=== PATIENT | male | born 1990 | race Caucasian/White ===

== ENCOUNTER 2017-04-27 12:22 | Emergency (ER) | payer SELFPAY ==
[2017-04-27 15:51] VITALS: BP 144/80
--- NOTE | 2017-04-27 16:34 | UC ---
Eugene Luna Benjamin, scribed for Rinku Andrews MD on 04/27/17 at 1524 . Hand/Wrist HPI - HPI Summary HPI Summary: 27yo male c/o left hand and fingers swelling and pain since yesterday morning. Pt reports having sharp shooting pain down his left arm. Pt also reports numbness on the tips of the left 2nd and 3rd fingers. Pt also has some discoloration on his left fingers. 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 No pain anywhere else, denies any pain in legs. - History Of Current Complaint Chief Complaint: UCUpperExtremity Stated Complaint: HAND TINGLING Hx Obtained From: Patient Onset/Duration: Sudden Onset, Lasting Days, Still Present Severity Initially: Mild Severity Currently: Mild Pain Intensity: 3 Pain Scale Used: 0-10 Numeric Character Of Pain: Sharp Alleviating: Nothing Associated Signs And Symptoms: Positive: Swelling, Numbness/Tingling - Allergies/Home Medications Allergies/Adverse Reactions: Allergies Allergy/AdvReac Type Severity Reaction Status Date / Time No Known Allergies Allergy Verified 06/29/13 18:32 PMH/Surg Hx/FS Hx/Imm Hx Previously Healthy: No Neurological History: Other Other Neurological History: radial nerve palsy on the left arm - Surgical History Surgical History: None - Family History Known Family History: Positive: None Negative: Diabetes Family History: no cardiovascular issues in family lineage - Social History Occupation: Employed Full-time Lives: With Family Alcohol Use: Occasionally Substance Use Type: None Substance Use Comment - 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 Smoking Status (MU): Heavy Every Day Tobacco Smoker Type: Cigarettes Review of Systems Constitutional: Negative Skin: Negative Eyes: Negative ENT: Negative Respiratory: Negative Cardiovascular: Negative Gastrointestinal: Negative Genitourinary: Negative Motor: Negative Neurovascular: Negative Musculoskeletal: Other: - left fingers and arm pain Neurological: Numbness - on left fingers Psychological: Negative All Other Systems Reviewed And Are Negative: Yes Physical Exam Triage Information Reviewed: Yes Appearance: Well-Appearing, Well-Nourished, Pain Distress - mild Vital Signs: Initial Vital Signs Temp 99.0 F 04/27/17 13:09 Pulse 118 04/27/17 13:09 Resp 18 04/27/17 13:09 BP 118/81 04/27/17 13:09 Pulse Ox 100 04/27/17 13:09 Vital Signs Reviewed: Yes Eyes: Positive: Conjunctiva Clear ENT: Positive: Normal ENT inspection Neck: Positive: Supple, Nontender Respiratory: Positive: Chest non-tender, Lungs clear, Normal breath sounds Cardiovascular: Positive: RRR, No Murmur, Other: - radial pulse present Musculoskeletal: Positive: Strength Intact, ROM Intact, Other: - Tender in the left forearm. Not tender to palpation on the left upper arm, left arm is in full ROM. Neurological: Positive: Alert, Muscle Tone Normal Psychological: Positive: Age Appropriate Behavior Skin: Positive: Other - modeling in the distal aspect of the left fingers, left hand, and the left palm.. Negative: rashes Hand/Wrist Course/Dx - Course Course Of Treatment: Reviewed medications list. Advised pt that appropriate ultrasound study to evaluate his condition is unable to be done here at the urgent care. DISCUSSED DIFFERENT POSSIBILITIES OF ISCHEMIC HAND WITH PATIENT AND THE NEED FOR IMMEDIATE EVALUATION AND CARE AT A HOSPITAL WITH VASCULAR SURGERY AVAILABILITY. HE DECLINED TRANSPORT BY AMBULANCE. HE WILL GET A RIDE FROM FAMILY. I TOLD HIM HE COULD LOOSE HIS HAND IF HE DID NOT GET IMMEDIATE CARE. PATIENT STATED HE WOULD GO TO [facility] OR [facility]. HE ASKED FOR AN OUT OF WORK NOTE WHICH I GAVE HIM. LEFT AMA. - Differential Dx/Diagnosis Provider Diagnoses: LEFT HAND ISCHEMIA - Physician Notifications Discussed Patient Care With: Micah Tinoco - 1525. Discharge - Discharge Plan Condition: Guarded Disposition: AGAINST MEDICAL ADVICE Forms: *Work Release Referrals: No Primary Care Phys,NOPCP [Primary Care Provider] - The documentation as recorded by the Eugene browne Benjamin accurately reflects the service I personally performed and the decisions made by me, Rinku Andrews MD.
== END 2017-04-27 15:45 | disposition left against medical advice (07) ==
LOC: UCEAST 12:22
DX: I99.8 Other disorder of circulatory system (principal); F17.210 Nicotine dependence, cigarettes, uncomplicated
CPT/HCPCS: 99212; G0463

== ENCOUNTER 2017-06-16 16:07 | Emergency (ER) | payer SELFPAY ==
[2017-06-16 16:59] VITALS: BP 128/56
== END 2017-06-16 18:13 | disposition left against medical advice (07) ==
LOC: ED 16:07
DX: L02.414 Cutaneous abscess of left upper limb (principal); Z53.21 Procedure and treatment not carried out due to patient leaving prior to being seen by health care provider
CPT/HCPCS: 99282

== ENCOUNTER 2017-06-17 11:36 | Inpatient (IN) | payer SELFPAY ==
[2017-06-17] MEDS ORDERED: Vancomycin(*) 1,250 MG in NS 0.9% 250 ML* 250 ML IVPB ONE (13:23)
--- NOTE | 2017-06-17 13:27 | ED ---
Upper Extremity Pain - HPI Summary HPI Summary: Pt here w/ Lt arm pain x 4 days. Reports he's an IVDA and "missed" (the vein?) Redness, pain, swelling. Stiffness of elbow joint since yesterday - hurts bicep area and forearm to move elbow. Fever/chills yesterday. Denies numbness, tingling, weakness. Pain is worse w/ moving fingers as well. Appears fatigued. Denies chest pain, SOB, nausea, vomiting. Requesting I "just cut it open and let me get out of here". He tried to keith it himself with a razor blade yesterday w/o success of purulent drainage. Tetanus is UTD. 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 - Allergies/Home Medications Allergies/Adverse Reactions: Allergies Allergy/AdvReac Type Severity Reaction Status Date / Time No Known Allergies Allergy Verified 06/17/17 11:41 PMH/Surg Hx/FS Hx/Imm Hx Previously Healthy: Yes Endocrine/Hematology History: Denies: Hx Anticoagulant Therapy, Hx Blood Disorders, Hx Diabetes, Hx Thyroid Disease, Autoimmune Disease Cardiovascular History: Denies: Hx Hypertension Respiratory History: Denies: Hx Asthma, Hx Chronic Obstructive Pulmonary Disease (COPD) GI History: Denies: Hx Ulcer Psychiatric History: Reports: Hx Substance Abuse Denies: Hx Eating Disorder, Hx of Violent Episodes Against Others Infectious Disease History: No Infectious Disease History: Reports: Hx Hepatitis Denies: Hx Clostridium Difficile, Hx Human Immunodeficiency Virus (HIV), Hx of Known/Suspected MRSA, Hx Shingles, Hx Tuberculosis, Traveled Outside the [place] in Last 30 Days - Family History Known Family History: Positive: None Negative: Diabetes Family History: no cardiovascular issues in family lineage - Social History Lives: With Family Alcohol Use: Occasionally Hx Substance Use: Yes 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, Marijuana, Sedatives Substance Use Comment - Amount & Last Used: opiods Hx Tobacco Use: Yes Smoking Status (MU): Current Every Day Smoker Type: Cigarettes Review of Systems Constitutional: Other - see HPI Cardiovascular: Negative Respiratory: Negative Gastrointestinal: Negative Musculoskeletal: Other - see HPI Skin: Other - see HPI Neurological: Negative Psychological: Normal All Other Systems Reviewed And Are Negative: Yes Physical Exam Triage Information Reviewed: Yes Vital Signs On Initial Exam: Initial Vitals Temp Pulse Resp BP Pulse Ox 98.8 F 122 16 116/79 98 06/17/17 11:41 06/17/17 11:41 06/17/17 11:41 06/17/17 11:41 06/17/17 11:41 Vital Signs Reviewed: Yes Appearance: Positive: Ill-Appearing - appears fatigued, generalized pallor, Pain Distress, Thin Skin: Positive: Warm - Lt UE: erythematous, firm, indurated, feverish Lt distal bicep and proximal forearm - overlying linear scabbed wound - no drainage, no fluctuance; pain in proximal forearm w/ passive movement of phalanges and wrist , Dry Head/Face: Positive: Normal Head/Face Inspection ENT: Positive: Hearing grossly normal Respiratory/Lung Sounds: Positive: Breath Sounds Present Cardiovascular: Positive: Pulses are Symmetrical in both Upper and Lower Extremities Abdomen Description: Positive: Guarding Bowel Sounds: Positive: Present Musculoskeletal: Positive: Limited @ - Lt elbow with limited ROM outside of 90 degrees flexion - painful w/ movement - see above for details Neurological: Positive: Sensory/Motor Intact, Alert, Oriented to Person Place, Time, CN Intact II-III Psychiatric: Positive: Other - agitated during conversation but sleeping when not in conversation Diagnostics - Vital Signs Vital Signs Temp Pulse Resp BP Pulse Ox 06/17/17 12:08 98.8 F 122 16 116/79 98 06/17/17 11:41 98.8 F 122 16 116/79 98 - Laboratory Result Diagrams: 06/17/17 13:25 06/17/17 13:25 Lab Statement: Any lab studies that have been ordered have been reviewed, and results considered in the medical decision making process. Re-Evaluation - Re-Evaluation First Eval Change: Improved Course/Dx - Course Course Of Treatment: Pt here w/ Lt arm pain, stiffness and s/sx of infection. Labs are supportive of infection as well. Septic therapy initiated however pulse was initially recorded inappropriately (HR 60'0, not 120's). Discussed w/ Dr. Briones who is requesting ortho consult. Dr. Friend requesting MRI and admit to medicine - will follow MRI results and clean out CHAD infection as needed. Spoke w/ Dr. Stallone who agrees to admission. Pt agrees to admission. Pt stable at time of transition. Dr. Briones - Diagnoses Differential Diagnosis/HQI/PQRI: Positive: Septic Arthritis, Other - tenosynovitis, cellulitis Provider Diagnoses: Pain in left arm - Physician Notifications Discussed Care of Patient With: Will Briones Discharge - Discharge Plan Condition: Stable Disposition: ADMITTED TO [facility] Referrals: No Primary Care Phys,NOPCP [Primary Care Provider] -
[2017-06-17 13:46] LABS: Hematocrit 39 % (42-52); Hemoglobin 12.9 g/dl (14.0-18.0); Mean Corpuscular HGB Conc 33 g/dl (31-36); Mean Corpuscular Hemoglobin 26 pg (27-31); Mean Corpuscular Volume 78 fL (80-94); Mean Platelet Volume 8 um3 (7.4-10.4); Red Blood Count 4.96 10^6/ul (4.0-5.4); Red Cell Distribution Width 15 % (10.5-15); White Blood Count 12.9 10^3/ul (3.5-10.8)
[2017-06-17 13:59] LABS: Albumin 4.2 g/dL (3.2-5.2); BUN/Creatinine Ratio 15.6 (8-20); C Reactive Protein 198.45 mg/L (< 5.00); Calcium 9.4 mg/dL (8.6-10.3); EGFR African American 129.2 (>60); EGFR Non-African American 100.5 (>60); Globulin 4.4 g/dL (2-4); Potassium 3.9 mmol/L (3.5-5.0); Total Protein 8.6 g/dL (6.4-8.9)
[2017-06-17] MEDS: NS 0.9% 1000 ML*IV.FLUID IV ONE (14:22)
[2017-06-17] MEDS ORDERED: Ketorolac INJ* 60 MG/2 ML VIAL IV PUSH ONE (15:22)
[2017-06-17] MEDS ORDERED: Ketorolac INJ* 30 MG/ML 1 ML VIAL ONE (15:56)
[2017-06-17] MEDS ORDERED: Ketorolac INJ* 30 MG/ML 1 ML VIAL IV PUSH ONE (15:57)
[2017-06-17] MEDS ORDERED: Acetaminophen TAB* 325 MG PO PRN (17:22)
--- NOTE | 2017-06-17 18:19 | RAD ---
Indication: Left arm swelling. Image sequences: Sagittal T1, STIR, coronal T1, STIR, axial T1 and STIR images of the upper arm and elbow were obtained. There is extensive subcutaneous edema noted. In the musculature just lateral to the biceps muscle presumably within the subcutaneous tissue is a fluid collection measuring 2.9 x 2.0 x 1.5 cm. This is consistent with an abscess. Additional fluid collection measuring approximately 2.4 x 1.1 cm is just lateral to the biceps tendon. Additionally there is increased edema in the biceps brachii muscle as well as in the brachialis muscle consistent with myositis. Additionally there is muscular edema in the extensor carpi radialis muscle. This is also consistent with myositis. IMPRESSION: Extensive subcutaneous edema is noted. Drainable fluid collection lateral to the biceps muscle proximal to the elbow crease. Additionally there is drainable fluid collection measuring 2.4 x 1.0 cm just lateral to the biceps brachialis tendon at the elbow. Extensive muscular edema in the biceps, brachialis and brachioradialis muscles.
[2017-06-17] MEDS ORDERED: KETAMINE HCL* 50 MG/ML 10 ML VIAL ONE (19:21)
[2017-06-17] MEDS ORDERED: Lidocaine 2% PF * 5 ML VIAL ONE (19:21)
[2017-06-17] MEDS ORDERED: Propofol* 10 MG/ML 20 ML BTL IV PUSH ONE (19:21)
[2017-06-17] MEDS ORDERED: Midazolam* 1 MG/ML 5 ML VIAL (5 MG) ONE (19:21)
[2017-06-17] MEDS ORDERED: fentaNYL* 50 MCG/ML 5 ML VIAL (250 MCG VIAL) ONE (19:21)
[2017-06-17] MEDS ORDERED: Ondansetron INJ* 2 MG/ML VIAL ONE (19:21)
--- NOTE | 2017-06-17 19:35 | CONS ---
CONSULTATION REPORT: DATE OF CONSULT: 06/17/17 CHIEF COMPLAINT: Left upper extremity infection versus compartment syndrome versus fascitis. HISTORY: The patient is a 27-year-old man, who does not work, who is currently applying for disabilities because he has Buerger's disease, with hepatitis C, who is is an IV drug user, using opiates, who presented to the emergency department today with a painful left upper extremity. The patient states that he injected IV opiates about the anterior aspect of the distal left upper arm 4 days ago on 06/13/17. The following day, June 14, the patient noted some induration and tenderness to palpation about the injection site. This induration and tenderness worsened and he developed more pain over the next several days. He developed some skin erythema as well. The patient attempted to treat himself by an attempt at keith with a razor blade , yesterday, June 16, of the area of the induration about the anterior aspect of the left upper arm. This did not relieve his symptoms. The patient denies fevers at home, but says that he may have had some chills occasionally at home. The patient last used IV drugs this morning, June 17. He has noted some stiffness about the elbow joint since yesterday. PAST MEDICAL HISTORY: Buerger's disease, hepatitis C. PAST SURGICAL HISTORY: Excision of abscess, left forearm, neck. MEDICATIONS: None. ALLERGIES: No known drug allergies. REVIEW OF SYSTEMS: The patient describes chills, but no fevers or sweats at home. No chest pain, shortness of breath, nausea, or vomiting. No heart palpitations. No other joint pain. No current numbness and tingling left upper extremity, although the patient will occasionally get that from his Buerger's disease. PHYSICAL EXAMINATION: Temperature 99.3 degrees Fahrenheit, pulse 66, respiratory rate 16, oxygen saturation 97% on room air, blood pressure 115/64. These vitals were taken at 2:03 p.m. The patient had 2 temperatures obtained at 11:41 a.m. and 12:08 p.m. earlier today that were both 98.8 degrees Fahrenheit, in the emergency department. No acute distress. The patient seems slightly uncomfortable. Alert and oriented. The patient's mood and affect seem appropriate and he is respectful. The patient's dress and hygiene are poor. He seems generally unbathed and his clothes are a little bit dirty. Gait was not assessed as he is sitting on a stretcher in a ER bay. Well coordinated, bilateral lower and right upper extremity. Left upper extremity exam demonstrates some erythema about the anterior aspect of the distal left upper arm extending distal to the elbow joint. This erythema extends medial and lateral as well. There is some soft tissue swelling and induration about the distal left upper arm anteriorly. There is a small break in the skin, approximately 1 cm long about the anterior left upper arm distally where the patient lanced his skin yesterday. There is no drainage from that skin defect. No left axillary lymphadenopathy. No clear erythematous streaking. The patient does have some tenderness to palpation about the left anterior distal upper arm. The patient's passive range of motion of the left elbow is 30 to 95 degrees of flexion. He has some discomfort at terminal ranges of motion and describes that discomfort as being about the distal anterior upper arm. Within that range of 30 to 95 degrees of flexion at times he had no discomfort and at times he had some discomfort, but I would not describe it as extreme discomfort. With range of motion of the wrist and digits, the patient had at least a 50 degree painless range of motion of wrist in all finger joints without discomfort about the upper arm. Radial artery pulse intact 2+ to palpation. Neurovascularly intact distally. LABORATORY VALUES: White blood cell count is 12.9, hematocrit is 39, INR is 1.28, and lactic acid is 0.4, glucose is 106. C-reactive protein is 198.45. These labs were obtained on 06/17/17 at 12 o'clock and 3:59 p.m. ASSESSMENT: 1. Left upper arm infection, cellulitis with possible abscess from IV drug use. 2. No current symptoms or signs of either compartment syndrome or necrotizing fascitis. PLAN: 1. Given the patient's 65 degrees of relatively pain free passive range of motion in the elbow and pain free range of motion of the wrist, my suspicion of compartment syndrome is much lower. 2. Though the patient has an elevated CRP and white blood cell count, the patient does not appear toxic to me. Overall, he appears comfortable although in some discomfort. He does not have lymphangitic erythematous streaking despite having a significant cellulitis, erythema of the skin about the anterior antecubital fossa and anterior upper arm distally. His vitals are stable, although he has a low- grade temperature. Therefore, I do not think he has necrotizing fascitis. 3. Emergency department had already started vancomycin, IV. I recommend to continue this. 4. Recommend MRI, left upper extremity to evaluate for a focal fluid collection that might require surgical decompression or decompression under Interventional Radiology. 5. The patient should be maintained n.p.o. just in case we decide to take him to the operating room tonight. Otherwise, this could be taken care of tomorrow if the patient's clinical picture does not worsen. 6. Addendum: MRI demonstrated 2 discrete abscesses about the left upper arm, 1 approximately 5 cm proximal to the capitellum and the other 2 cm proximal to the capitellum, both almost straight anterior in the upper arm, the proximal abscess being slightly anterolateral, just lateral to the biceps tendon. The patient will go to the OR for I&D now. Cultures intraop. [id number]/[facility] #: [id number] [facility] HOSPITALColleen
[2017-06-17] MEDS ORDERED: ceFAZolin 2 GM PREMIX (*) 50 ML IVPB ONE (19:51)
[2017-06-17] MEDS ORDERED: HYDROmorphone* 1 MG/ML 1 ML SYR ONE (20:31)
[2017-06-17] MEDS ORDERED: Ondansetron INJ* 2 MG/ML VIAL IV PRN (20:56)
[2017-06-17] MEDS ORDERED: fentaNYL* 50 MCG/ML 2 ML VIAL (100 MCG VIAL) ONE (21:17)
[2017-06-17] MEDS: fentaNYL* 50 MCG/ML 2 ML VIAL (100 MCG VIAL) IV PRN ×2 (21:18→21:20)
[2017-06-17] MEDS: NS 0.9% 1000 ML* 1,000 ML IV SCH (22:12)
[2017-06-17] MEDS: Senna TAB PO SCH ×2 (23:14→23:18)
[2017-06-17] MEDS ORDERED: Vancomycin(*) 1,000 MG in NS 0.9% 250 ML* 250 ML IVPB SCH (23:45)
[2017-06-18] MEDS: oxyCODONE/Acetamin 5/325 MG* TAB PO PRN ×6 (00:14→22:53)
[2017-06-18] MEDS ORDERED: Vancomycin per Pharmacy* NOTE FOLLOW UP PRN (01:00)
[2017-06-18 05:28] LABS: Hematocrit 31 % (42-52); Hemoglobin 10.2 g/dl (14.0-18.0); Mean Corpuscular HGB Conc 33 g/dl (31-36); Mean Corpuscular Hemoglobin 26 pg (27-31); Mean Corpuscular Volume 78 fL (80-94); Mean Platelet Volume 9 um3 (7.4-10.4); Red Blood Count 3.97 10^6/ul (4.0-5.4); Red Cell Distribution Width 15 % (10.5-15)
[2017-06-18 05:42] LABS: BUN/Creatinine Ratio 16.1 (8-20); Calcium 7.9 mg/dL (8.6-10.3); EGFR African American 134.4 (>60); EGFR Non-African American 104.5 (>60); Potassium 3.5 mmol/L (3.5-5.0)
--- NOTE | 2017-06-18 07:54 | OP ---
DATE OF OPERATION: 06/17/17 - ROOM #408 DATE OF : 88 SURGEON: Iglesia Friend MD INSPECTOR REPAIRER: None. ANESTHESIOLOGIST: Gómez Veloz MD ANESTHESIA: General anesthesia. PRE-OP DIAGNOSIS: Abscesses, left upper extremity, with overlying cellulitis. POST-OP DIAGNOSIS: Abscesses, left upper extremity, with overlying cellulitis. OPERATIVE PROCEDURE: Incision, irrigation, and debridement, left upper arm abscesses. INDICATIONS: The patient is a 27-year-old man, who does not work, currently seeking disability because of his Buerger's disease, who also has hepatitis C and is an IV drug user, injecting opiates, who presented to the emergency department on the date of surgery, complaining of tenderness, induration, pain, and erythema about the left upper arm, four days status post injecting drugs in that site on 06/13/17. The patient's exam and MRI imaging were consistent with an abscess. MRI in fact showed two separate fluid collections - one was approximately 5 cm proximal of the capitellum about the anterolateral upper arm , anterior/anterolateral; one was more distal, 2 cm proximal of the capitellum, straight anterior about the upper arm. I discussed with the patient benefits, risks, and potential complications of the surgery. Risks and complications include bleeding, infection, nerve or blood vessel injury, blood clot, recurrence of infection. ANTIBIOTICS: Ancef 2 g IV perioperatively. Vancomycin 1.250 g given at 1:23 p.m., approximately 6 hours preoperatively. IV FLUIDS: 800 cc crystalloid. IRRIGANT: 4 L crystalloid. TOURNIQUET TIME: 21 minutes at 250 mmHg. SPECIMEN: Aerobic and anaerobic culture swabs. COMPLICATIONS: None. IMPLANTS: None. DESCRIPTION OF PROCEDURE: Preoperative written consent. Operative extremity was marked in preoperative holding. As stated above, the patient had gotten a dose of antibiotics, vancomycin 1.250 g, in the emergency department at 1:23 p.m. He had Ancef available for skin incision. Unfortunately, this was given before cultures were taken intraop. The patient was taken back to the operating room and placed supine on the operating room table. He was sedated and intubated. A hand table was attached. A non- sterile tourniquet was applied about the left upper arm. The left upper extremity was prepped with Betadine. The left upper extremity was draped. A surgical time-out was performed. The patient had an approximately 1-cm skin incision that he had made by the razor blade in the last several days to try to decompress the abscess on his own. I extended that skin incision both proximally and distally. Proximally, I extended it anterolaterally and distally more anterior, so that the incision developed a slight S to its shape, although still closer to a straight line and in the S shape. I continued the incision with a knife and then spreading dissection scissors through the skin and subcutaneous tissue to muscle belly, biceps and brachialis. This was mostly biceps muscle. Pus was encountered immediately as I incised through the subcutaneous tissue layer. Cultures, anaerobic and aerobic, were obtained. I did not mention previously, a time-out of course was called prior to skin incision. There was some bleeding about the subcutaneous tissue, so the tourniquet was elevated to 250 mmHg. Using finger dissection and spreading dissection with scissors, I spread down to the muscle layer. I extended the incision slightly distally to make sure to decompress the abscess more distally as seen on MRI. I then irrigated with 3 L of crystalloids. There was some -appearing tissue, poorly colored, directly aligned with the skin incision. It appeared to be a mixture of some muscle and perhaps a vein. This was very friable and was debrided. I tied the vein off proximally and distal to this area with silk ties. This was even though there was no bleeding whatsoever from the tourniquet up. Silk ties were 2-0 in size. I irrigated with another liter. I then closed the skin incision with 3 simple stitches in the skin using a 4-0 nonabsorbable monofilament suture. These were loosely placed. There was still gap between the sutures, by design and left the superior aspect of the incision unclosed. I packed Ioban -soaked packing into the wound from the superior extent of it. I then placed 4x4's, sterile Webril, and Coban. The tourniquet had been dropped prior to closure. The patient was awakened, extubated, and brought to the PACU. DISPOSITION: The patient will be admitted to the hospitalist service due to his drug addiction. He will be continued on antibiotics, vancomycin until culture and sensitivities return. Orthopedics will continue to monitor, follow skin exam, oversee packing removal, adjust antibiotics. We will also obtain ID consult. [id number]/[facility] #: [id number] [facility]PITALColleen
[2017-06-18] MEDS ORDERED: Vancomycin(*) 1,000 MG in NS 0.9% 250 ML* 250 ML IVPB SCH (08:00)
[2017-06-18] MEDS: Senna TAB PO SCH ×2 (08:18→22:58)
[2017-06-18] MEDS ORDERED: ceFAZolin 1 GM VIAL(*) 1 GM in NS 0.9% 50 ML* 50 ML IVPB SCH (08:30)
[2017-06-18] MEDS ORDERED: ceFAZolin* 2 GM in NS 100 MLS Q8HR IVPB SCH (09:00)
[2017-06-18 09:27] LABS: Benzodiazepine Urine Screen Presumptive Positive (None Detect)
--- NOTE | 2017-06-18 09:40 | PN ---
Progress Note - Progress Note Date of Service: 06/18/17 SOAP: Subjective: Complains of pain left upper arm, albeit reduced. Objective: NAD. LUE: -greatly decreased area of skin erythema about the anterior upper arm and elbow -incision skin edges closely opposed throughout despite only 3 stitches and gaps left open during surgery - wick in place - NVID - passive and active ROM, vigorous 30-100 without any significant discomfort Cx intraop: MSSA Microbiology 06/17/17 20:15 Wound - Left Skin and Soft Tissue MRSA/MSSA (PCR - Final Mrsa Negative S.aureus Positive Selected Entries 06/18/17 07:43 Temperature 98.6 F Pulse Rate 81 Respiratory 16 Rate Blood Pressure 140/70 (mmHg) O2 Sat by Pulse 96 Oximetry Laboratory Tests 06/18/17 04:53 WBC 12.0 H Assessment: POD 1 I&D left upper arm abscesses. Plan: - Ancef @gm IV q 8 hrs - ID consult - Dressing DSD change daily with wick removed 1 cm by nursing or doctor/PA. I did it this morning - I cut 2 of 3 stitches this morning to insure that wound does not close prematurely. Still has [address] - Social work consult for IVDU
[2017-06-18] MEDS: ceFAZolin 2 GM PREMIX (*) 100 ML IVPB SCH ×2 (09:55→17:10)
--- NOTE | 2017-06-18 11:31 | CONS ---
CONSULTATION REPORT: DATE OF CONSULT: 06/18/17 REQUESTING PHYSICIAN: Dr. Friend. CONSULTING SERVICE: Infectious Disease. REASON FOR CONSULTATION: Right arm abscess. IMPRESSION: 1. Active injection drug use and MRI yesterday showed abscess lateral to the biceps muscle and a collection lateral to the biceps brachialis tendon. He was taken to operating room last night by Dr. Friend for drainage of abscess. Gram stain showed gram-positive cocci, gram-negative bacilli, gram-positive bacilli, PCR positive for Staph aureus, negative for MRSA. Pain, swelling, and range of motion are improved today. He has been afebrile throughout. 2. Past positive hepatitis C antibody. 3. Active injection drug use, opioids in an outpatient program. RECOMMENDATIONS: 1. Agree with cefazolin 2 g IV every 8 hours while awaiting the final culture, but the MRSA and PCR was negative, so we can hold off on vancomycin. Expect he will need a couple of days of IV antibiotics before changing it over to oral antibiotic therapy. 2. Check an HIV antibody. HISTORY OF PRESENT ILLNESS: This is a 27-year-old man who injects drugs, admitted with left arm infection. At the site of one where he injects a few days ago, he developed redness, pain, swelling, decreased range of motion of the elbow and his shoulder. He put his arm in a sling. Symptoms continued to get worse, so he came to the ER yesterday and had an MRI with results as above. He was started on vancomycin, taken to the OR by Dr. Friend directly and then had incision and debridement. His cultures are pending. Blood cultures that were sent are pending. Gram stain was sent and PCR as above. This morning , he feels like the range of motion of his shoulder and elbow are better for the first time in a few days. He has had no fever, chills, or sweats. He is eating okay. He has occasional loose stools since starting antibiotics. PAST MEDICAL HISTORY: 1. Hepatitis C antibody positive. 2. Injection drug use, opioids, currently in an outpatient program awaiting inpatient program. Denies other medical problems. MEDICATIONS: 1. Tylenol. 2. Senna. 3. Cefazolin 2 g every 8 hours. 4. Percocet. ALLERGIES: No known drug allergies. FAMILY HISTORY: No recurrent infections or tuberculosis. SOCIAL HISTORY: Lives in [place]. Injecting opioids. No travel. No sick contacts. REVIEW OF SYSTEMS: All negative to full review of systems except as noted above. PHYSICAL EXAM: Vital Signs: Temperature 37, heart rate 80, respiratory rate 16 , blood pressure 140/70, O2 sat 96% on room air. In general, he is awake and not in distress. HEENT: There is no conjunctival hemorrhage. Oropharynx without lesions. Neck is supple without nuchal rigidity. Lymph Nodes: There are no inguinal, axillary, or epitrochlear lymphadenopathy. Heart has regular rate and rhythm without murmurs, rubs, or gallops. Lungs are clear to auscultation bilaterally. Abdomen is soft, nontender, and nondistended. Bowel sounds present. Skin: There is no rash or splinter hemorrhages. Musculoskeletal: Right upper arm is wrapped. There is no tenderness in the forearm or elbow. There is diffuse edema there. There is no erythema. Mild warmth. There is crepitus or fluctuance. DIAGNOSTIC STUDIES/LAB DATA: White blood cell count 12, hemoglobin 10, platelets 215. Creatinine 0.8, CRP 200. Please see impressions and recommendations as outlined above. Thanks for asking me to see Mr. Dudley in consultation. [id number]/[facility] #: [id number]
[2017-06-18] MEDS: NS 0.9% 1000 ML* 1,000 ML IV SCH (14:13)
[2017-06-18] MEDS ORDERED: Vancomycin Trough Check NOTE FOLLOW UP ONE (15:30)
--- NOTE | 2017-06-18 21:25 | PN ---
Subjective Date of Service: 06/18/17 Interval History: . saw patient earlier today noted culture results; MSSA and ID rec for ancef and that is ongoing pain control adequate SW consult in progress for insurance acquisition as well as re-engaging rehab options. regular diet tolerated surgical leadership appreciated on this case. following labs. Family History: Unchanged from Admission Social History: Unchanged from Admission Past Medical History: Unchanged from Admission Objective Active Medications: . Acetaminophen (Tylenol Tab*) 650 mg PO Q4H PRN PRN Reason: FEVER/PAIN Last Admin: 06/17/17 23:14 Dose: 650 mg Sodium Chloride (Ns 0.9% 1000 Ml*) 1,000 mls @ 75 mls/hr IV PER RATE KEISHA Last Admin: 06/18/17 14:13 Dose: 75 mls/hr Cefazolin Sodium/Dextrose (Kefzol 2 Gm Premix(*)) 100 mls @ 200 mls/hr IVPB Q8H [facility] Last Admin: 06/18/17 17:10 Dose: 200 mls/hr Oxycodone/Acetaminophen (Percocet 5/325 Tab*) 1 tab PO Q4H PRN PRN Reason: PAIN Last Admin: 06/18/17 18:36 Dose: 1 tab Senna (Senokot Tab*) 1 tab PO BID KEISHA Last Admin: 06/18/17 08:18 Dose: Not Given . Vital Signs 06/17/17 06/18/17 06/18/17 23:34 00:00 00:14 Temperature 98.3 F Pulse Rate 74 Respiratory 16 18 Rate Blood Pressure 123/58 (mmHg) O2 Sat by Pulse 98 94 Oximetry 06/18/17 06/18/17 06/18/17 03:14 04:12 07:43 Temperature 98.2 F 98.6 F Pulse Rate 85 81 Respiratory 12 20 16 Rate Blood Pressure 123/60 140/70 (mmHg) O2 Sat by Pulse 94 96 Oximetry Oxygen Devices in Use Now: Nasal Cannula Appearance: NAD Ears/Nose/Mouth/Throat: Clear Oropharnyx Neck: Trachea Midline Respiratory: Symmetrical Chest Expansion and Respiratory Effort Cardiovascular: NL Sounds; No Murmurs; No JVD Abdominal: No Hepatosplenomegaly Lymphatic: No Cervical Adenopathy Extremities: - - L upper extremity dressed s/p I&D and bandage changed. Skin: No Rash or Ulcers, - - IV injection fung noted bilateral Lines/Tubes/Other Access: Clean, Dry and Intact Peripheral IV Nutrition: Taking PO's Result Diagrams: 06/18/17 04:53 06/18/17 04:53 Assess/Plan/Problems-Billing . Assessment: 27 yo man with IV opioid injection/abuse now with upper extremity abscess s/p I& D by orthopedic surgery. Current Meds: - Acetaminophen (Tylenol Tab) 650 mg PO Q4H PRN FEVER/PAIN - NS @ 75 mls/hr - Cefazolin 2 gm IVPB Q8H - Oxycodone/Acetaminophen (Percocet 5/325 Tab) 1 tab PO Q4H PRN PAIN - Senna (Senokot Tab) 1 tab PO BID - Patient Problems (1) Abscess of arm, left Current Visit: Yes Status: Acute Priority: High Code(s): L02.414 - CUTANEOUS ABSCESS OF LEFT UPPER LIMB Comment: - s/p surgical I&D - IV antibiotics - ANCEF 2 gm IV Q8 - pain control with percocet (2) Opioid abuse Current Visit: Yes Status: Acute Priority: High Code(s): F11.10 - OPIOID ABUSE, UNCOMPLICATED Comment: - SW consult (3) MSSA (methicillin susceptible Staphylococcus aureus) infection Current Visit: Yes Status: Acute Priority: High Code(s): A49.01 - METHICILLIN SUSCEP STAPH INFECTION, UNSP SITE Comment: - Ancef for now.
--- NOTE | 2017-06-18 22:47 | HP ---
HISTORY AND PHYSICAL: DATE OF ADMISSION: 06/17/17 CHIEF COMPLAINT: Left arm abscess and redness. HISTORY OF PRESENT ILLNESS: Mr. Dudley is a 27-year-old gentleman who has hepatitis C and abuses IV drug (specifically opiates) comes to the emergency room with a painful left arm. He states he has been injecting heroin in the anterior aspect of his left arm several days ago specifically 06/13/17. The patient noticed soon after that there was tenderness and redness and swelling. This became more painful and the patient attempted to incise the swelling with a razor blade. He did this the day prior to admission on 06/16/17. This did not relieve his symptoms and perhaps it made it worse. He has been having a low -grade fever and perhaps some chills. He continued to use IV drugs most recently the day prior to admission, 06/17/17. He has some limited motion of that arm. I am consulted by the emergency room for admission for IV antibiotics and Dr. Iglesia Friend has already performed a consultation and has requested an MRI of the upper extremity with intentions of characterizing the fluid collection for surgical treatment. PAST MEDICAL HISTORY: 1. Buerger's disease. 2. Hepatitis C. 3. History of abscess incision on his neck and left forearm. OUTPATIENT MEDICATIONS: None. ALLERGIES: No known drug allergies. SOCIAL HISTORY: The patient is currently unemployed. He is an IV drug user as above. He drinks alcohol occasionally. He is accompanied by his mother. He has no assets, but does not have insurance and has not applied for Medicaid or any other insurance. He is single. REVIEW OF SYSTEMS: The patient has not had a recent HIV test. He lives in [place], [place]. The patient had a review of 14 systems at the bedside. This is negative except for the pertinent positives as mentioned above in the HPI and past medical history. PHYSICAL EXAMINATION On admission: GENERAL APPEARANCE: Disheveled, unkempt, young appearing man, in slight discomfort. VITAL SIGNS: Temperature 98.8 degrees Fahrenheit, pulse 50s to 60s consistently. There was one value of 122, which I believe was erroneous, respirations 16 and regular, oxygen saturation 98% on room air, blood pressure 116/50s-60s. HEENT: Generally unremarkable, but poor oral dentition. Mucous membranes are moist. No posterior pharyngeal erythema or exudate. NECK: Supple. No elevated JVD. CHEST: Clear breath sounds anteriorly. HEART: Regular rate and rhythm. ABDOMEN: Soft, nontender. EXTREMITIES: Significant for the left anterior forearm redness and swelling. It is currently dressed and it is certainly erythematous and it is marked previously done so by the orthopedic client consultant. Extremities are otherwise unremarkable. There are injection sites. NEUROLOGIC: No focal sensory or motor deficits noted. I did not assess his gait. PSYCH: Normal affect and reasonable medical receptionist medical assistant. DIAGNOSTIC STUDIES/LAB DATA: Admission data: White blood cell count elevated at 12.9, hemoglobin also 12.9, platelets 282. INR 1.28. Blood chemistries significant for modestly elevated glucose at 106. CRP greatly elevated at 198. Toxicology positive for opiates, benzodiazepines as well as cannabinoids ( marijuana). IMPRESSION: Mr. Dudley is a 27-year-old gentleman with IV drug abuse, who had a left forearm abscess in the elbow area that he attempted to incise without success and has progressively worsened to the point of him seeking emergency room care. The patient has already been started on IV vancomycin, which is reasonable considering the possibility of MRSA in this IV drug abuser. Dr. Iglesia Friend is kindly seeing the patient in consultation and ordered an upper extremity MRI to characterize the abscess for potential surgical intervention. The hospitalist service will continue to follow loosely, but the general plan would be IV antibiotics and IV vancomycin as appropriate for now as well as surgical source control by an I and D if appropriate. The other intervention would be a Social Work consultation where the patient should certainly apply for Medicaid. Also, the patient should re-access his drug rehabilitation programs. He has had legal problems relating to this and I believe he is on probation. His mother is in the emergency room, is very upset about this. This should be certainly explored by Social Work and assistance should be provided where possible. Pain control can be accomplished by intermittent ketorolac and/or Percocet as ordered. TIME SPENT: Total time taken to admit Mr. Dudley was 65 minutes, greater than half the time was spent going over the history and physical examination. [id number]/[facility] #: [id number] MTDD
[2017-06-19] MEDS: ceFAZolin 2 GM PREMIX (*) 100 ML IVPB SCH ×3 (00:50→17:43)
[2017-06-19] MEDS: oxyCODONE/Acetamin 5/325 MG* TAB PO PRN ×4 (02:56→17:42)
[2017-06-19] MEDS: NS 0.9% 1000 ML* 1,000 ML IV SCH (06:57)
[2017-06-19] MEDS: Ketorolac INJ* 15 MG/ML 1 ML VIAL IV PUSH PRN ×3 (07:52→22:40)
--- NOTE | 2017-06-19 08:13 | PN ---
Progress Note - Progress Note Date of Service: 06/19/17 SOAP: Subjective: More comfortable, less pain. ID consult by Harry- agreed with Ancef and change to PO abx when pt responds sufficiently. Objective: LUE: - inc open proximal and distal, closed with stitch in middle - no skin erythema - reduced swelling soft tissue and induration, although some persists anterior distal upper arm - AROM elbow 20-110 without any discomfort - NVID - Murky brown fluid in wound Assessment: POD 2 I&D abscesses left upper arm Plan: - Upper arm appearance is much improved - Because of murky fluid in wound, I decided to open up wound more (I'm constantly balancing desire for faster infection eradication and faster wound healing/better cosmesis with these). Removed final stitch and opened up wound. Removed packing 1cm. - I will switch patient to wet to dry dressings with a change daily - Dressing change daily or more often if patient saturates through dressing - Continue Ancef. He needs at least 1-2 more day's of IV abx before conversion to Keflex - Patient has inpatient rehab scheduled in [place] for when he is discharged from here
[2017-06-19] MEDS: Senna TAB PO SCH ×2 (10:36→20:23)
--- NOTE | 2017-06-19 14:59 | PN ---
Subjective Date of Service: 06/19/17 Interval History: Patient seen this afternoon. Reports continued improvement, feels like he has greater ROM in the arm. No fever or chills. Good PO intake. Family History: Unchanged from Admission Social History: Unchanged from Admission Past Medical History: Unchanged from Admission Objective Active Medications: Acetaminophen (Tylenol Tab*) 650 mg PO Q4H PRN Sodium Chloride (Ns 0.9% 1000 Ml*) 1,000 mls @ 75 mls/hr IV PER RATE KEISHA Cefazolin Sodium/Dextrose (Kefzol 2 Gm Premix(*)) 100 mls @ 200 mls/hr IVPB Q8H KEISHA Ketorolac Tromethamine (Toradol Inj*) 15 mg IV PUSH Q6H PRN Oxycodone/Acetaminophen (Percocet 5/325 Tab*) 1 tab PO Q4H PRN Senna (Senokot Tab*) 1 tab PO BID [facility] Vital Signs 06/19/17 06/19/17 06/19/17 00:00 00:51 02:56 Temperature Pulse Rate Respiratory 16 16 Rate Blood Pressure (mmHg) O2 Sat by Pulse 100 Oximetry 06/19/17 06/19/17 06/19/17 03:09 04:56 06:53 Temperature 98.0 F Pulse Rate 71 Respiratory 16 16 16 Rate Blood Pressure 116/68 (mmHg) O2 Sat by Pulse 94 Oximetry 06/19/17 06/19/17 06/19/17 07:31 08:00 08:53 Temperature 98.2 F Pulse Rate 50 Respiratory 16 16 16 Rate Blood Pressure 97/55 (mmHg) O2 Sat by Pulse 99 Oximetry 06/19/17 06/19/17 11:27 12:03 Temperature 97.9 F Pulse Rate 58 Respiratory 16 16 Rate Blood Pressure 115/72 (mmHg) O2 Sat by Pulse 100 Oximetry Oxygen Devices in Use Now: Nasal Cannula Appearance: Young, M, laying in bed in NAD Eyes: No Scleral Icterus Ears/Nose/Mouth/Throat: Mucous Membranes Moist Neck: NL Appearance and Movements; NL JVP Respiratory: Symmetrical Chest Expansion and Respiratory Effort, Clear to Auscultation Cardiovascular: NL Sounds; No Murmurs; No JVD, RRR Abdominal: NL Sounds; No Tenderness; No Distention Lymphatic: No Cervical Adenopathy Extremities: - - LUE with some swelling, dressing in place over L elbow, did not remove Skin: No Rash or Ulcers Neurological: Alert and Oriented x 3 Result Diagrams: 06/18/17 04:53 06/18/17 04:53 Assess/Plan/Problems-Billing . Assessment: 27 yo man with IV opioid injection/abuse now with upper extremity abscess s/p I& D by orthopedic surgery. - Patient Problems (1) Abscess of arm, left Current Visit: Yes Comment: - s/p surgical I&D - some additional pathogens present from Cx now - Continue IV antibiotics - ANCEF 2 gm IV Q8 - pain control with percocet (2) Opioid abuse Current Visit: Yes Comment: - Appreciate SW consult (3) DVT prophylaxis Current Visit: Yes Comment: Low risk, ambulate
[2017-06-20] MEDS: oxyCODONE/Acetamin 5/325 MG* TAB PO PRN ×4 (00:26→19:52)
[2017-06-20] MEDS: ceFAZolin 2 GM PREMIX (*) 100 ML IVPB SCH ×3 (00:27→16:33)
[2017-06-20 06:22] LABS: Hematocrit 35 % (42-52); Hemoglobin 11.5 g/dl (14.0-18.0); Mean Corpuscular HGB Conc 33 g/dl (31-36); Mean Corpuscular Hemoglobin 26 pg (27-31); Mean Corpuscular Volume 78 fL (80-94); Mean Platelet Volume 8 um3 (7.4-10.4); Red Blood Count 4.45 10^6/ul (4.0-5.4); Red Cell Distribution Width 15 % (10.5-15); White Blood Count 10.5 10^3/ul (3.5-10.8)
[2017-06-20 06:23] LABS: Add Diff/Slide Review? Manual Diff Added; Comments Flag Yes
[2017-06-20 06:28] LABS: Eosinophils % 1 % (0-6); Immature Granulocytes 9 % (0-9); Metamyelocytes % 7 % (0-2); Microcytosis 1+; Neutrophil % 64 % (38-83)
[2017-06-20] MEDS: Ketorolac INJ* 15 MG/ML 1 ML VIAL IV PUSH PRN ×2 (08:32→16:33)
[2017-06-20] MEDS: Senna TAB PO SCH ×2 (08:39→19:53)
[2017-06-20] MEDS: Ciprofloxacin 400MG IVPREMIX(* 400 MG/200 ML BAG IVPB SCH (13:27)
--- NOTE | 2017-06-20 15:53 | PN ---
Subjective Date of Service: 06/20/17 Interval History: Patient reports continued swelling in the arm but feels it is improving. Says he noted foul odor with wound change this morning. Asked about sweating episode this AM and he states it was because he was under the covers with his girlfriend and he always sweats profusely. Denies any drug use while hospitalized. Patient states he will be leaving tomorrow as he had "things to do ". Family History: Unchanged from Admission Social History: Unchanged from Admission Past Medical History: Unchanged from Admission Objective Active Medications: Acetaminophen (Tylenol Tab*) 650 mg PO Q4H PRN PRN Reason: FEVER/PAIN Last Admin: 06/17/17 23:14 Dose: 650 mg Cefazolin Sodium/Dextrose (Kefzol 2 Gm Premix(*)) 100 mls @ 200 mls/hr IVPB Q8H [facility] Last Admin: 06/20/17 08:33 Dose: 200 mls/hr Ciprofloxacin/Dextrose (Cipro 400 Mg Ivpremix(*)) 400 mg in 200 mls @ 200 mls/ hr IVPB Q12H [facility] Last Admin: 06/20/17 13:27 Dose: 200 mls/hr Ketorolac Tromethamine (Toradol Inj*) 15 mg IV PUSH Q6H PRN PRN Reason: PAIN Last Admin: 06/20/17 08:32 Dose: 15 mg Oxycodone/Acetaminophen (Percocet 5/325 Tab*) 1 tab PO Q4H PRN PRN Reason: PAIN Last Admin: 06/20/17 11:09 Dose: 1 tab Senna (Senokot Tab*) 1 tab PO BID [facility] Last Admin: 06/20/17 08:39 Dose: Not Given Vital Signs 06/19/17 06/19/17 06/19/17 15:57 17:42 19:39 Temperature 98.0 F 97.8 F Pulse Rate 53 60 Respiratory 18 18 18 Rate Blood Pressure 138/79 144/83 (mmHg) O2 Sat by Pulse 100 100 Oximetry 06/19/17 06/19/17 06/19/17 19:42 20:00 23:34 Temperature 98.2 F Pulse Rate 52 Respiratory 18 18 16 Rate Blood Pressure 119/64 (mmHg) O2 Sat by Pulse 100 Oximetry 06/20/17 06/20/17 06/20/17 00:00 00:26 02:26 Temperature Pulse Rate 62 Respiratory 18 16 Rate Blood Pressure (mmHg) O2 Sat by Pulse Oximetry 06/20/17 06/20/17 06/20/17 05:46 05:50 07:54 Temperature 98.1 F 98.2 F Pulse Rate 115 57 Respiratory 16 16 16 Rate Blood Pressure 120/78 147/74 (mmHg) O2 Sat by Pulse 100 100 Oximetry 06/20/17 06/20/17 06/20/17 08:00 10:56 11:09 Temperature 98.0 F Pulse Rate 64 Respiratory 18 17 18 Rate Blood Pressure 123/70 (mmHg) O2 Sat by Pulse 100 Oximetry 06/20/17 06/20/17 13:09 15:34 Temperature 97.5 F Pulse Rate 55 Respiratory 18 16 Rate Blood Pressure 130/71 (mmHg) O2 Sat by Pulse 100 Oximetry Oxygen Devices in Use Now: None Appearance: Young, M, laying in bed in NAD Eyes: No Scleral Icterus Ears/Nose/Mouth/Throat: Mucous Membranes Moist Neck: NL Appearance and Movements; NL JVP Respiratory: Symmetrical Chest Expansion and Respiratory Effort, Clear to Auscultation Cardiovascular: NL Sounds; No Murmurs; No JVD, RRR Abdominal: NL Sounds; No Tenderness; No Distention Lymphatic: No Cervical Adenopathy Extremities: - - LUE dressing in place, missed dressing change with Dr. Rodriges , saw photo Neurological: Alert and Oriented x 3 Result Diagrams: 06/20/17 05:54 06/18/17 04:53 Assess/Plan/Problems-Billing . Assessment: 27 yo man with IV opioid injection/abuse now with upper extremity abscess s/p I& D by orthopedic surgery. - Patient Problems (1) Abscess of arm, left Current Visit: Yes Comment: - s/p surgical I&D, appreciate Ortho assistance - some additional pathogens present from Cx now - Continue IV antibiotics - Ancef, Cipro, Flagyl. Will plan to discharge on Doxy /Flagyl - pain control with percocet (2) Opioid abuse Current Visit: Yes Comment: - Appreciate SW consult (3) DVT prophylaxis Current Visit: Yes Comment: Low risk, ambulate
[2017-06-20] MEDS ORDERED: DOXYcycline IV* 100 MG in NS 0.9% 250 ML* 250 ML IVPB SCH (16:00)
[2017-06-20] MEDS ORDERED: metroNIDAZOLE IV 500 MG/100ML* 500 MG/100 ML BAG IVPB SCH (16:00)
--- NOTE | 2017-06-20 16:37 | PN ---
Progress Note - Progress Note Date of Service: 06/20/17 SOAP: Subjective: Patient is more comfortable and can move his elbow more freely. Nursing reports patient HR up overnight and that he appeared "green". Objective: MICHELLE FLORES: - some serous drainage on dressing - wound open - no significant fibrous layer in wound - greatly decreased induration such that no significant induration now - mild doft tissue swelling about anterior distal upper arm, greatly reduced - AROM elbow 0-140 without discomfort - mild TTP about incision site - small area of erythema distal and medial to incision site - NVID Microbiology 06/17/17 20:15 Wound - Left Skin and Soft Tissue MRSA/MSSA (PCR - Final Mrsa Negative S.aureus Positive 06/17/17 14:15 Blood Venous Blood Culture - Final 06/17/17 20:15 Wound - Left Anaerobic Culture - Preliminary 06/17/17 20:15 Wound - Left Prevotella Melaninogenica 06/17/17 14:15 Blood Venous Aerobic Blood Culture - Preliminary 06/17/17 14:15 Blood Venous Anaerobic Blood Culture - Preliminary No Growth Day 3 No Growth Day 3 Selected Entries 06/20/17 06/20/17 06/20/17 05:46 07:54 15:34 Temperature 97.5 F Pulse Rate 115 57 55 Respiratory 16 Rate Blood Pressure 120/78 130/71 (mmHg) O2 Sat by Pulse 100 Oximetry 06/17/17 20:15 Arm Left Gram Stain - Final 06/17/17 20:15 Arm Left Wound Culture - Final Klebsiella Pneumoniae Streptococcus Anginosus Aeromonas Hydrophila/Caviae Cx sensitivities returned today & we started Cipro IV to compliment Ancef and to cover Aeromonas Hydrophila Assessment: POD 3 I&D abscesses left upper arm Plan: - Patient announced he will leave hospital tomorrow. I was thinking tomorrow or 06/22/17 would be appropriate for conversion to oral abx and discharge. Patient can not be swayed. - Discussed with Hospitalist. All aerobic organisms are sensitive to Tetracyclines, so we will discharge patient home on Doxycycline. To cover the anaerobe above, we will start Flagyl now and continue that on discharge. So d/ c home on Doxycycline and Flagyl. - Patient may shower and get the wound wet. This will, in fact, help clean it. - Wet to dry dressing changes once daily. Nursing should do some education prior to discharge from the hospital. - Patient should see me in clinic for a wound check on , 06/25/17. - Patient is entering in-patient rehab for substance abuse next week.
[2017-06-20] MEDS: metroNIDAZOLE TAB* 250 MG PO SCH (21:10)
[2017-06-21] MEDS: ceFAZolin 2 GM PREMIX (*) 100 ML IVPB SCH ×2 (00:32→08:57)
[2017-06-21] MEDS: oxyCODONE/Acetamin 5/325 MG* TAB PO PRN ×2 (00:38→08:58)
[2017-06-21] MEDS: Ciprofloxacin 400MG IVPREMIX(* 400 MG/200 ML BAG IVPB SCH (01:04)
[2017-06-21] MEDS: Senna TAB PO SCH (08:43)
[2017-06-21 08:53] VITALS: BP 138/83
[2017-06-21] MEDS: metroNIDAZOLE TAB* 250 MG PO SCH (08:57)
--- NOTE | 2017-06-21 10:02 | PN ---
Progress Note - Progress Note Date of Service: 06/21/17 SOAP: Subjective: patient resting comfortably with no complaints of pain Objective: Vital Signs Temp Pulse Resp BP Pulse Ox 98.0 F 63 16 138/83 99 06/21/17 07:50 06/21/17 07:50 06/21/17 08:58 06/21/17 07:50 06/21/17 08:03 Laboratory Last Values WBC 10.5 10^3/ul (3.5-10.8) 06/20/17 05:54 RBC 4.45 10^6/ul (4.0-5.4) 06/20/17 05:54 Hgb 11.5 g/dl (14.0-18.0) L 06/20/17 05:54 Hct 35 % (42-52) L 06/20/17 05:54 MCV 78 fL (80-94) L 06/20/17 05:54 MCH 26 pg (27-31) L 06/20/17 05:54 MCHC 33 g/dl (31-36) 06/20/17 05:54 RDW 15 % (10.5-15) 06/20/17 05:54 Plt Count 245 10^3/ul (150-450) 06/20/17 05:54 MPV 8 um3 (7.4-10.4) 06/20/17 05:54 Immature Gran % (Auto) 9 % (0-9) 06/20/17 05:54 Neut % (Auto) 66.6 % (38-83) 06/18/17 04:53 Lymph % (Auto) 22.9 % (25-47) L 06/18/17 04:53 Lake % (Auto) 9.6 % (1-9) H 06/18/17 04:53 Eos % (Auto) 0.6 % (0-6) 06/18/17 04:53 Baso % (Auto) 0.3 % (0-2) 06/18/17 04:53 Absolute Neuts (auto) 5.5 10^3/ul (1.5-7.7) 06/20/17 05:54 Absolute Lymphs (auto) 3.5 10^3/ul (1.0-4.8) 06/20/17 05:54 Absolute Monos (auto) 1.1 10^3/ul (0-0.8) H 06/20/17 05:54 Absolute Eos (auto) 0.3 10^3/ul (0-0.6) 06/20/17 05:54 Absolute Basos (auto) 0.1 10^3/ul (0-0.2) 06/20/17 05:54 Absolute Nucleated RBC 0 10^3/ul 06/20/17 05:54 Neutrophils % 64 % (38-83) 06/20/17 05:54 Band Neutrophils % 2 % (0-8) 06/20/17 05:54 Lymphocytes % 22 % (25-47) L 06/20/17 05:54 Monocytes % 4 % (0-13) 06/20/17 05:54 Eosinophils % 1 % (0-6) 06/20/17 05:54 Metamyelocytes % 7 % (0-2) H 06/20/17 05:54 Nucleated RBC % 0.1 06/18/17 04:53 Normal RBC Morphology Not Reportable 06/20/17 05:54 Microcytosis 1+ 06/20/17 05:54 INR (Anticoag Therapy) 1.28 (0.89-1.11) H 06/17/17 13:25 APTT 32.0 seconds (26.0-36.3) 06/17/17 13:25 Sodium 133 mmol/L (133-145) 06/18/17 04:53 Potassium 3.5 mmol/L (3.5-5.0) 06/18/17 04:53 Chloride 105 mmol/L (101-111) 06/18/17 04:53 Carbon Dioxide 23 mmol/L (22-32) 06/18/17 04:53 Anion Gap 5 mmol/L (2-11) 06/18/17 04:53 BUN 14 mg/dL (6-24) 06/18/17 04:53 Creatinine 0.87 mg/dL (0.67-1.17) 06/18/17 04:53 Est GFR ( Amer) 134.4 (>60) 06/18/17 04:53 Est GFR (Non-Af Amer) 104.5 (>60) 06/18/17 04:53 BUN/Creatinine Ratio 16.1 (8-20) 06/18/17 04:53 Glucose 116 mg/dL (70-100) H 06/18/17 04:53 Lactic Acid 0.4 mmol/L (0.5-2.0) L 06/17/17 13:25 Calcium 7.9 mg/dL (8.6-10.3) L 06/18/17 04:53 Total Bilirubin 1.00 mg/dL (0.2-1.0) 06/17/17 13:25 AST 20 U/L (13-39) 06/17/17 13:25 ALT 16 U/L (7-52) 06/17/17 13:25 Alkaline Phosphatase 93 U/L (34-104) 06/17/17 13:25 Troponin I 0.00 ng/mL (<0.04) 06/17/17 13:25 C-Reactive Protein 198.45 mg/L (< 5.00) H 06/17/17 13:25 Total Protein 8.6 g/dL (6.4-8.9) 06/17/17 13:25 Albumin 4.2 g/dL (3.2-5.2) 06/17/17 13:25 Globulin 4.4 g/dL (2-4) H 06/17/17 13:25 Albumin/Globulin Ratio 1.0 (1-3) 06/17/17 13:25 Urine Opiates Screen Presumptive positive (None Detect) H 06/18/17 06:00 Ur Barbiturates Screen None detected (None Detect) 06/18/17 06:00 Ur Phencyclidine Scrn None detected (None Detect) 06/18/17 06:00 Ur Amphetamines Screen None detected (None Detect) 06/18/17 06:00 U Benzodiazepines Scrn Presumptive positive (None Detect) H 06/18/17 06:00 Urine Cocaine Screen None detected (None Detect) 06/18/17 06:00 U Cannabinoids Screen Presumptive positive (None Detect) H 06/18/17 06:00 HIV 1&2 Antibody Nonreactive (Nonreactive) 06/18/17 04:53 incision: healing well, dressing changed this am PE: NVI Assessment: POD#4 I &D left arm abscess Plan: 1) daily wet to dry dressing changes 2) home today with Carol and Flagyl 3) F/U with Dr. Friend next , 06/25/17
--- NOTE | 2017-06-21 10:22 | DCNOTE ---
Patient seen this morning with Ortho. Wound healing well, reports minimal pain, good ROM. On exam, RRR, s1 and s2 present, no m/g/r, LUE with open incision, no purulence , good granulation Discharge on oral Doxy and Flagyl for additional 7 days. Follow-up with Dr. Rodriges on 06/25. Patient plans to enter inpatient rehab.
--- NOTE | 2017-06-22 01:48 | DS ---
DISCHARGE SUMMARY: DATE OF ADMISSION: 06/17/17 DATE OF DISCHARGE: 06/21/17 PRINCIPAL DISCHARGE DIAGNOSIS: Left upper arm abscess secondary to IV drug abuse. SECONDARY DIAGNOSES: 1. Buerger's disease. 2. Hepatitis C. DISCHARGE MEDICATION REGIMEN: 1. Flagyl 500 mg by mouth 3 times daily. 2. Doxycycline 100 mg by mouth 3 times daily. 3. Ibuprofen 400 mg by mouth every 6 hours as needed for pain. CONSULTANTS DURING HOSPITALIZATION: Dr. Iglesia Friend, Orthopedics. STUDIES DONE DURING HOSPITALIZATION: MRI of the upper extremity, impression: Extensive subcutaneous edema is noted. Drainable fluid collection lateral to the biceps muscle proximal to the elbow crease. Additionally, there is drainable fluid collection measuring 2.4 x 1.0 cm just lateral to the biceps brachialis tendon at the elbow. Extensive muscular edema in the biceps brachialis and brachioradialis muscles. HISTORY OF PRESENT ILLNESS AND HOSPITAL SUMMARY: Please see the full history and physical by Dr. Shen Galan for full details. Briefly, Mr. Dudley is a 27-year- old man who abuses IV drugs, who presented to the hospital with left arm pain, redness, and swelling. As noted above, imaging showed evidence of fluid collections subcutaneously. Dr. Friend of Orthopedics was consulted. He took the patient to the operating room and performed I and D as well as irrigation of the left upper arm abscesses. The patient was continued on IV antibiotics. He was also evaluated by Dr. Refugio Mcdonald of Infectious Disease. The patient ended up growing multiple bacteria from the wound cultures including Klebsiella, Streptococcus anginosus, Aeromonas hydrophila, Prevotella melaninogenica, as well as methicillin-sensitive Staph aureus. The patient was continued on IV antibiotics throughout the hospitalization. On the day of discharge, he felt that he could not stay in the hospital anymore as he has "things to do." A decision was made to discharge the patient on oral doxycycline and Flagyl and he will follow up with Dr. Friend in the office in 4 days. The patient also is reportedly entering inpatient rehab, which he has arranged for himself. TIME SPENT: Total time spent on this discharge, 45 minutes. This is a summary of the hospitalization. Please see the full medical record for further details. [id number]/[facility] #: [id number] [facility]
== END 2017-06-21 11:20 | disposition home or self-care (01) | DRG 581 ==
LOC: ED 11:36 → MED 17:15 → UNDOADMOB 17:15 → ED 19:21 → OR 19:26 → MED 21:30 → INTOOBSV 21:30 → OBSVTOIN 06-18 23:07
PROVIDERS: ADMIT Orthopaedic Surgery; ATTEND Hospitalist
PROC: 0J9F0ZZ Drainage of Left Upper Arm Subcutaneous Tissue and Fascia, Open Approach (ICD-10-PCS; 2017-06-17)
PROC: 0KB80ZZ Excision of Left Upper Arm Muscle, Open Approach (ICD-10-PCS; principal; 2017-06-17 19:37)
DX: L02.414 Cutaneous abscess of left upper limb (principal); I73.1 Thromboangiitis obliterans [Buerger's disease]; B96.1 Klebsiella pneumoniae [K. pneumoniae] as the cause of diseases classified elsewhere; B95.61 Methicillin susceptible Staphylococcus aureus infection as the cause of diseases classified elsewhere; B19.20 Unspecified viral hepatitis C without hepatic coma; B95.4 Other streptococcus as the cause of diseases classified elsewhere; B96.89 Other specified bacterial agents as the cause of diseases classified elsewhere; F11.10 Opioid abuse, uncomplicated
CPT/HCPCS: 36415; 80048; 80053; 80307; 83605; 84484; 85025; 85610; 85730; 86140; 86703; 87040; 87070; 87073; 87076; 87077; 87185; 87186; 87205; 87640; 87641; 93005; 94760; A9270-GY; G0378; J0690; J0744; J1170; J1885; J2250; J2405; J2700; J2704; J3010; J3370

== ENCOUNTER 2018-05-30 17:29 | Emergency (ER) | payer SELFPAY ==
--- NOTE | 2018-05-30 18:06 | UC ---
Knee Pain HPI - HPI Summary HPI Summary: 28 yo male presents with RIGHT knee pain since last night. He tells me that in the middle of the night he woke up to go to the bathroom. Stepped down two steps and twisted his knee. Has had mild discomfort on the medial aspect ever since. Has been taking ibuprofen for pain with mild relief. He is ambulatory without assistance and without significant limp. Denies numbness and tingling - History of Current Complaint Stated Complaint: R KNEE INJURY Time Seen by Provider: 05/30/18 18:05 Hx Obtained From: Patient Onset/Duration: Sudden Onset Severity Initially: Moderate Severity Currently: Moderate Pain Intensity: 5 Pain Scale Used: 0-10 Numeric - Allergies/Home Medications Allergies/Adverse Reactions: Allergies Allergy/AdvReac Type Severity Reaction Status Date / Time No Known Allergies Allergy Verified 05/30/18 18:09 Home Medications: Home Medications Buprenorphine HCl/Naloxone HCl [Suboxone 8 mg-2 mg Sl Film] 05/30/18 [History] PMH/Surg Hx/FS Hx/Imm Hx - Additional Past Medical History Additional PMH: none Other History Of: Negative For: Anticoagulant Therapy - Surgical History Surgical History: Yes Surgery Procedure, Year, and Place: ABSCESS DRAINAGE NECK AND LEFT ARM - Family History Known Family History: Positive: None Negative: Diabetes Family History: no cardiovascular issues in family lineage - Social History Occupation: Employed Full-time Lives: With Family Alcohol Use: Occasionally Substance Use Type: Heroin, Marijuana, Other Substance Use Comment - Amount & Last Used: opiods Smoking Status (MU): Current Every Day Smoker Type: Cigarettes - Immunization History Most Recent Influenza Vaccination: never Most Recent Pneumonia Vaccination: never Review of Systems Constitutional: Negative Skin: Negative Respiratory: Negative Cardiovascular: Negative Neurovascular: Negative Musculoskeletal: Other: - Right knee pain Neurological: Negative Psychological: Negative All Other Systems Reviewed And Are Negative: Yes Physical Exam - Summary Physical Exam Summary: GENERAL: NAD. WDWN. No pain distress. SKIN: No rashes, sores, lesions, or open wounds. NECK: Supple. Nontender. No lymphadenopathy. CHEST: No accessory muscle use. Breathing comfortably and in no distress. CV: . Pulses intact popliteal, PT, and DP. Brisk cap refill. MSK: RIGHT KNEE: Mild TTP along medial joint space. Valgus stress pain on medial aspect. FROM. Strength 5/5. No edema or obvious bony deformities. No patella apprehension. Negative Kia, A/P drawer, Melania, and varus stress. NEURO: Alert. Sensations intact and symmetric B/L LEs PSYCH: Age appropriate behavior. Triage Information Reviewed: Yes Vital Signs: Vital Signs: Temp Pulse Resp BP Pulse Ox 98.3 F 71 16 116/58 99 05/30/18 17:59 05/30/18 17:59 05/30/18 17:59 05/30/18 17:59 05/30/18 17:59 Vital Signs Reviewed: Yes Knee Pain Course/Dx - Course Course Of Treatment: Pt declined XR at this time. Declined crutches. Suspect sprain of knee. Advised to RICE, apply LINDY wrap, and f/u with Sports med. - Differential Dx/Diagnosis Provider Diagnoses: Right knee sprain Discharge - Sign-Out/Discharge Documenting (check all that apply): Patient Departure - Discharge Plan Condition: Stable Disposition: HOME Patient Education Materials: Knee Pain (ED), Swollen Joint (ED) Forms: *Work Release Referrals: No Primary Care Phys,NOPCP [Primary Care Provider] - [facility] [Provider Group] - As Soon As Possible Additional Instructions: If you develop a fever, shortness of breath, chest pain, new or worsening symptoms - please call your PCP or go to the ED. 1) Rest, Ice, and elevate your knee as much as possible 2) Please call Sports Medicine at the number below to schedule a follow up appointment - Billing Disposition and Condition Condition: STABLE Disposition: Home
[2018-05-30 18:09] VITALS: BP 116/58
== END 2018-05-30 18:30 | disposition home or self-care (01) ==
LOC: UCEAST 17:29
DX: S83.91XA Sprain of unspecified site of right knee, initial encounter (principal); X50.1XXA Overexertion from prolonged static or awkward postures, initial encounter; Y93.9 Activity, unspecified; Y99.9 Unspecified external cause status
CPT/HCPCS: 99212; G0463

== ENCOUNTER 2019-02-11 17:17 | Emergency (ER) | payer OTHER ==
[2019-02-11 18:02] VITALS: BP 130/68
[2019-02-11] MEDS ORDERED: Bupivacaine 0.25% SDV PF* 10 ML VIAL INJ ONE ×2 (19:15→20:14)
--- NOTE | 2019-02-11 19:30 | ED ---
Skin Complaint - HPI Summary HPI Summary: 28 yo WM p/w left forearm laceration while running up the stairs and fell on single pane window, states he is in process of rearranging house and things are strewn around the floor and is messy - History of Current Complaint Chief Complaint: UCLaceration Time Seen by Provider: 02/11/19 19:09 Stated Complaint: HAND LAC Hx Obtained From: Patient Onset/Duration: Started Hours Ago Timing: Lasting Hours Onset Severity: Moderate Pain Intensity: 7 - Additional Pertinent History Primary Care Physician: [id number] - Allergy/Home Medications Allergies/Adverse Reactions: Allergies Allergy/AdvReac Type Severity Reaction Status Date / Time No Known Allergies Allergy Verified 02/11/19 18:02 PMH/Surg Hx/FS Hx/Imm Hx Previously Healthy: Yes Endocrine/Hematology History: Denies: Hx Anticoagulant Therapy, Hx Blood Disorders, Hx Diabetes, Hx Thyroid Disease Cardiovascular History: Denies: Hx Hypertension, Hx Pacemaker/ICD Respiratory History: Denies: Hx Asthma, Hx Chronic Obstructive Pulmonary Disease (COPD) GI History: Denies: Hx Ulcer Sensory History: Denies: Hx Contacts or Glasses, Hx Hearing Aid Opthamlomology History: Denies: Hx Contacts or Glasses Psychiatric History: Reports: Hx Substance Abuse Denies: Hx Eating Disorder, Hx Panic Disorder, Hx of Violent Episodes Against Others - Surgical History Surgery Procedure, Year, and Place: ABSCESS DRAINAGE NECK AND LEFT ARM Infectious Disease History: No Infectious Disease History: Reports: Hx Hepatitis Denies: Hx Clostridium Difficile, Hx Human Immunodeficiency Virus (HIV), Hx of Known/Suspected MRSA, Hx Shingles, Hx Tuberculosis, Traveled Outside the [place] in Last 30 Days - Family History Known Family History: Positive: None Negative: Diabetes Family History: no cardiovascular issues in family lineage - Social History Alcohol Use: Occasionally Hx Substance Use: Yes Substance Use Type: Reports: Heroin, Marijuana, Other Substance Use Comment - Amount & Last Used: opiods Hx Tobacco Use: Yes Smoking Status (MU): Current Every Day Smoker Type: Cigarettes Review of Systems - ROS Summary Review of Systems Summary: Constitutional: Negative Eyes: Negative ENT: Negative Cardiovascular: Negative Respiratory: Negative Gastrointestinal: Negative Musculoskeletal: Negative Skin: left forearm laceration Neurological: Negative Psychological: Normal All Other Systems Reviewed And Are Negative: Yes Physical Exam - Summary Physical Exam Summary: Vital Signs Reviewed: Yes Appearance: Positive: No Pain Distress Skin: Positive: Deep 5cm laceration in left flexor surface of forearm and 1.2cm laceration on extensor surface of the forearm, subcut and top layer of muscle exposed, and other small superficial abrasions in dorsum of forearm and hand Head/Face: Positive: Normal Head/Face Inspection Eyes: Positive: Normal ENT: Positive: Normal ENT inspection Neck: Positive: Supple Respiratory/Lung Sounds: Positive: Clear to Auscultation Cardiovascular: Positive: Normal, RRR, S1, S2 Abdomen Description: Positive: Nontender Musculoskeletal: Positive: Normal, Left Hand and finger ROM intact, Left radial pulse 2+, NVI, MOves all 5 fingers and at wrist Neurological: Positive: CN Intact II-III Psychiatric: Positive: Normal Vital Signs On Initial Exam: Initial Vitals Temp Pulse Resp BP Pulse Ox 37.2 C 87 18 130/68 100 02/11/19 17:57 02/11/19 17:57 02/11/19 17:57 02/11/19 17:57 02/11/19 17:57 Procedures - Laceration/Wound Repair 2 Location: upper extremity - left forearm Betadine Prep?: Yes Laceration/Wound Explored: clean Closure: Multilayer Debridement: moderate Suture Type: Nylon, Vicryl Number of Sutures: 30 Layer Closure?: Yes Sterile Dressing Applied?: Yes Diagnostics - Vital Signs Vital Signs Temp Pulse Resp BP Pulse Ox 02/11/19 17:57 37.2 C 87 18 130/68 100 - Laboratory Lab Statement: Any lab studies that have been ordered have been reviewed, and results considered in the medical decision making process. Course/Dx - Course Assessment/Plan: Multiple left forearm laceration, 2 deep wounds repaired with multi-layer closure with 4-0 vicryl on subcut layer and 4-0 ethilon on the skin layer- THIRTY sutures placed in between 2 wounds - Diagnoses Provider Diagnoses: Laceration of forearm without complication Discharge - Sign-Out/Discharge Documenting (check all that apply): Patient Departure All imaging exams completed and their final reports reviewed: Yes - Discharge Plan Condition: Stable Disposition: HOME Prescriptions: Cephalexin CAP* [Keflex CAP*] 500 mg PO TID 10 Days #30 cap Patient Education Materials: Care For Your Stitches (ED), Laceration (ED) Referrals: Jennifer Sidhu MD [Medical Doctor] - Additional Instructions: RETURN TO CLINIC IN 2 DAYS for WOUND CHECK and also HAND SURGEON FOR EVALUATION TO MAKE SURE THERE IS NO TENDON DEFICIT- DR SIDHU - Billing Disposition and Condition Condition: STABLE Disposition: Home
[2019-02-11] MEDS ORDERED: Bupivacaine 0.5% SDV PF* 30ML VIAL INJ ONE (20:11)
[2019-02-11] MEDS ORDERED: Cephalexin CAP* 500 MG PO ONE (20:38)
== END 2019-02-11 21:00 | disposition home or self-care (01) ==
LOC: UCEAST 17:17
DX: S51.812A Laceration without foreign body of left forearm, initial encounter (principal); W17.89XA Other fall from one level to another, initial encounter; Y92.9 Unspecified place or not applicable
CPT/HCPCS: 12032; 99202; A9270-GY; G0463; J3490

== ENCOUNTER 2019-06-17 09:35 | Emergency (ER) | payer OTHER ==
[2019-06-17 09:44] VITALS: BP 142/92
== END 2019-06-17 11:17 | disposition left against medical advice (07) ==
LOC: UCEAST 09:35
DX: Z53.8 Procedure and treatment not carried out for other reasons (principal)
CPT/HCPCS: 99212; G0463

== ENCOUNTER 2019-07-12 07:07 | Emergency (ER) | payer OTHER ==
[2019-07-12 07:22] VITALS: BP 127/87
--- NOTE | 2019-07-12 07:40 | UC ---
Shoulder Pain HPI - HPI Summary HPI Summary: SUDDEN ONSET YESTERDAY OF LEFT POSTERIOR SHOULDER PAIN THAT RADIATES TO HIS NECK. PATIENT DENIES CHEST PAIN, SHORTNESS OF BREATH, NAUSEA. 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 DENIES ANY DISCRETE INJURY. NO PREVIOUS SHOULDER INJURY. CHECK 100 MG IBUPROFEN AND 1000 MG ACETAMINOPHEN 2 HOURS ENERGY SCHEDULER WITH NO IMPROVEMENT IN DISCOMFORT. - History of Current Complaint Chief Complaint: UCUpperExtremity Stated Complaint: SHOULDER PAIN Time Seen by Provider: 07/12/19 07:16 Hx Obtained From: Patient Onset/Duration: Sudden Onset, Lasting Days - 1 DAY, Still Present Timing: Constant Severity Initially: Moderate Severity Currently: Moderate Location Of Pain: Is Discrete @ - LEFT POSTERIOR SHOULDER Pain Intensity: 8 Pain Scale Used: 0-10 Numeric Character: Sharp Aggravating Factor(s): Movement Alleviating Factor(s): Nothing Associated Signs And Symptoms: Positive: Negative Related History: Dominant Hand Right - Allergies/Home Medications Allergies/Adverse Reactions: Allergies Allergy/AdvReac Type Severity Reaction Status Date / Time No Known Allergies Allergy Verified 07/12/19 07:22 PMH/Surg Hx/FS Hx/Imm Hx Other History Of: Hepatitis C Negative For: Anticoagulant Therapy - Surgical History Surgical History: Yes Surgery Procedure, Year, and Place: ABSCESS DRAINAGE NECK AND LEFT ARM - Family History Known Family History: Positive: None Negative: Diabetes Family History: no cardiovascular issues in family lineage - Social History Alcohol Use: Daily Alcohol Amount: 2 beers/night Substance Use Type: Marijuana, Other Substance Use Comment - Amount & Last Used: suboxone Smoking Status (MU): Heavy Every Day Tobacco Smoker Type: Cigarettes Amount Used/How Often: 1 PPD - Immunization History Most Recent Influenza Vaccination: never Most Recent Pneumonia Vaccination: never Review of Systems All Other Systems Reviewed And Are Negative: Yes Constitutional: Positive: Negative Skin: Positive: Negative Respiratory: Positive: Negative Cardiovascular: Positive: Negative Gastrointestinal: Positive: Negative Musculoskeletal: Positive: Arthralgia, Decreased ROM, Myalgia Physical Exam Triage Information Reviewed: Yes Appearance: Well-Appearing, Well-Nourished, Pain Distress - MOD/SEVERE Vital Signs: Initial Vital Signs Temp 98.1 F 07/12/19 07:20 Pulse 88 07/12/19 07:20 Resp 18 07/12/19 07:20 BP 127/87 07/12/19 07:20 Pulse Ox 99 07/12/19 07:20 Vital Signs Reviewed: Yes Eyes: Positive: Conjunctiva Clear ENT: Positive: Hearing grossly normal Neck: Positive: Supple Respiratory: Positive: No respiratory distress, No accessory muscle use Cardiovascular: Positive: Pulses Normal Abdomen Description: Positive: Soft Musculoskeletal: Positive: No Edema, ROM Limited @ - LEFT SHOULDER, Other: - NO FOCAL BONY TENDERNESS. TENDER DIFFUSELY LEFT POSTERIOR SHOULDER AND TRAPEZIUS MUSCLE Neurological: Positive: Alert Psychological: Positive: Age Appropriate Behavior Skin: Negative: Rashes Diagnostics - Radiology LEFT SHOULDER XRAYS Radiology Interpretation Completed By: Radiologist Summary of Radiographic Findings: NEGATIVE EXAM Shoulder Course/Dx - Differential Dx/Diagnosis Provider Diagnosis: Strain of left trapezius muscle Discharge ED - Sign-Out/Discharge Documenting (check all that apply): Patient Departure All imaging exams completed and their final reports reviewed: Yes - Discharge Plan Condition: Stable Disposition: HOME Prescriptions: Cyclobenzaprine TAB* [Flexeril TAB*] 10 mg PO BID PRN #30 tab PRN Reason: Pain Naproxen [Naproxen 500 mg tab] 500 mg PO BID PRN #30 tablet PRN Reason: Pain Patient Education Materials: Shoulder Separation Exercises (GEN), Muscle Strain (ED), Shoulder Pain (ED) Forms: *Work Release Referrals: [facility] [Outside] - If Needed Farideh Johns MD [Medical Doctor] - If Needed Additional Instructions: XRAY TODAY NEGATIVE FOR FRACTURE OR DISLOCATION. YOUR SYMPTOMS SHOULD IMPROVE SIGNIFICANTLY OVER THE NEXT 1-2 WEEKS. IF YOU DO NOT IMPROVE EXPECTED FOLLOW- UP WITH YOUR PCP OR ORTHO. YOU MAY BENEFIT FROM REPEAT IMAGING AT THAT TIME. NAPROXEN NEEDED FOR DISCOMFORT. REST. TAKE MUSCLE RELAXER BEFORE BED. BE SURE TO GO THROUGH SLOW RANGE OF MOTION AND STRETCHING EXERCISES DAILY YOU ARE ABLE TO PREVENT STIFFENING UP AND MAKING THE DISCOMFORT WORSE. CALL THE NUMBER BELOW FOR ASSISTANCE IN ESTABLISHING WITH A PCP An additional resource available to assist in finding the appropriate physician for your health care needs is the [facility] ([facility]). You may contact them by calling [phone]. - Billing Disposition and Condition Condition: STABLE Disposition: Home
== END 2019-07-12 08:24 | disposition home or self-care (01) ==
LOC: UCEAST 07:07
DX: S46.812A Strain of other muscles, fascia and tendons at shoulder and upper arm level, left arm, initial encounter (principal); X50.9XXA Other and unspecified overexertion or strenuous movements or postures, initial encounter; Y92.018 Other place in single-family (private) house as the place of occurrence of the external cause; B19.20 Unspecified viral hepatitis C without hepatic coma; F17.210 Nicotine dependence, cigarettes, uncomplicated
CPT/HCPCS: 99213; G0463